=== PATIENT | male | born 1965 | race Caucasian/White ===

== ENCOUNTER 2017-06-01 21:42 | Emergency (ER) | payer BC ==
--- NOTE | 2017-06-01 22:03 | UC ---
Hand/Wrist HPI - HPI Summary HPI Summary: Pt presents to the with left 5th finger pain. Pt states [employer] was playing basketball. Pt states his hand was struck by the knee of another player. Pt with pain to finger only- no wrist or elbow pain. No other injuries. No analgesia taken. No weakness. No paresthesia. No ice applied. Pt is RHD. No previous injury Pt's medications reviewed this visit - History Of Current Complaint Chief Complaint: UCUpperExtremity Stated Complaint: LEFT HAND INJURY Time Seen by Provider: 06/01/17 22:01 Hx Obtained From: Patient Mechanism Of Injury: struck by knee to left hand Onset/Duration: Sudden Onset Severity Initially: Moderate Severity Currently: Moderate Pain Intensity: 6 Pain Scale Used: 0-10 Numeric Character Of Pain: Sharp, Throbbing Aggravating Factor(s): Movement, Flexion Alleviating Factor(s): Nothing Associated Signs And Symptoms: Positive: Swelling - Allergies/Home Medications Allergies/Adverse Reactions: Allergies Allergy/AdvReac Type Severity Reaction Status Date / Time No Known Allergies Allergy Verified 06/01/17 21:54 PMH/Surg Hx/FS Hx/Imm Hx Previously Healthy: Yes - Surgical History Surgical History: None - Family History Known Family History: Positive: None - Social History Occupation: Employed Full-time Lives: With Family Alcohol Use: Occasionally Substance Use Type: None Smoking Status (MU): Never Smoked Tobacco - Immunization History Most Recent Tetanus Shot: within last 2-3 years Review of Systems Motor: Other - pain with movement Neurovascular: Negative Musculoskeletal: Edema - left 5th All Other Systems Reviewed And Are Negative: Yes Physical Exam Triage Information Reviewed: Yes Appearance: Well-Appearing, No Pain Distress, Well-Nourished Vital Signs: Initial Vital Signs Temp 98.5 F 06/01/17 21:51 Pulse 71 06/01/17 21:51 Resp 14 06/01/17 21:51 BP 146/97 06/01/17 21:51 Pulse Ox 97 06/01/17 21:51 Eyes: Positive: Conjunctiva Clear ENT: Positive: Hearing grossly normal Neck: Positive: Supple, Nontender, No Lymphadenopathy Respiratory: Positive: No respiratory distress, No accessory muscle use Cardiovascular: Positive: Other: - 2+ radial, 2+ ulnar CBT < 2 sec Musculoskeletal: Positive: Other: - + flex/ext elbow + pronate/supinate + flex/ ext left wrist with discomfort left 5th finger + flex/ext mcp, dip, pip with discomfort along 5th finger and medial dorsum hand Neurological Exam: Normal Neurological: Positive: Alert Psychological Exam: Normal Skin: Positive: Other - + edema along 5th finger no ecchymosis Procedures - Splinting Location: left hand Hand-Made Type: padded, held with per Splint: volar Pre-Proc Neuro Vasc Exam: normal Post-Proc Neuro Vasc Exam: normal, unchanged from pre-exam - permission to splint from pt. place in volar/ulnar gutter at 90 MCP joint Pt tolerated well Diagnostics - Radiology No standard instances Radiology Interpretation Completed By: ED Physician - oblique fx, 5th MC Hand/Wrist Course/Dx - Course Course Of Treatment: Pt with pain in left lateral hand s/p being struck during basketball game. Pt with 5th MCP fx. Pt placed in ulnar gutter/volar splint. tolerated well. CSM intact. referral to ortho. motrin/apap. sling. ice. elevate. Pt declined work note. Of note, during examination pt with vasovagal reaction - became lightheaded. Pt laid down - no syncope. pt rapidly, fully recovered pt took po juice and crackers. pt ambulated department, VSS prior to d/c - Differential Dx/Diagnosis Provider Diagnoses: Metacarpal fracture left Discharge - Discharge Plan Condition: Stable Disposition: HOME Patient Education Materials: Hand Fracture (ED) Forms: *Work Release Referrals: Huber Dugan MD [Medical Doctor] - Additional Instructions: - Wear splint until you are seen in follow-up by the orthopedic provider - Contact the orthopedic provider tomorrow to schedule a follow-up appointment - Okay to alternate ibuprofen (Advil, Motrin) and Tylenol every 3 hours for pain - take with food - Okay to apply ice (20 minutes at a time) 2-3 times a day - elevate your hand to help with swelling and pain -contact the orthopedic provider or return with questions or concerns
--- NOTE | 2017-06-02 07:31 | RAD ---
INDICATION: Left hand injury. TECHNIQUE: 4 views of the left hand were obtained. FINDINGS: There is an oblique fracture of the mid diaphysis of the fifth metacarpal. The fracture fragments are slightly overriding. The distal fragment is displaced one cortical diameter anterior and demonstrates slight anterior angulation relative the proximal fragment. IMPRESSION: OBLIQUE SLIGHTLY DISPLACED AND SLIGHTLY ANGULATED FRACTURE OF THE FIFTH METACARPAL.
== END 2017-06-01 22:37 | disposition home or self-care (01) ==
LOC: UCCORT 21:42
DX: S62.307A Unspecified fracture of fifth metacarpal bone, left hand, initial encounter for closed fracture (principal); W50.0XXA Accidental hit or strike by another person, initial encounter; Y93.67 Activity, basketball; Y92.310 Basketball court as the place of occurrence of the external cause
CPT/HCPCS: 26600; 99203; G0463

== ENCOUNTER 2018-12-04 10:50 | Emergency (ER) | payer BC ==
--- NOTE | 2018-12-04 11:32 | UC ---
Hand/Wrist HPI - HPI Summary HPI Summary: Left hand injured playing softball last night. Was tagging someone out at home plate and they slid into his hand. Has taken no mediation for pain at home. Placed his hand in an old splint he had fro ma pervious injury - History Of Current Complaint Chief Complaint: UCUpperExtremity Stated Complaint: LEFT HAND INJURY Hx Obtained From: Patient ?: No Onset/Duration: Sudden Onset, Lasting Hours Severity Initially: Moderate Severity Currently: Moderate Pain Intensity: 4 Character Of Pain: Dull, Aching, Stiffness Aggravating Factor(s): Movement Associated Signs And Symptoms: Positive: Swelling, Bruising - Allergies/Home Medications Allergies/Adverse Reactions: Allergies Allergy/AdvReac Type Severity Reaction Status Date / Time No Known Allergies Allergy Verified 12/04/18 11:11 PMH/Surg Hx/FS Hx/Imm Hx Previously Healthy: Yes - Surgical History Surgical History: None - Family History Known Family History: Negative: Cardiac Disease, Hypertension - Social History Alcohol Use: Occasionally Substance Use Type: None Smoking Status (MU): Never Smoked Tobacco - Immunization History Most Recent Tetanus Shot: within last 2-3 years Review of Systems All Other Systems Reviewed And Are Negative: Yes Skin: Positive: Bruising Musculoskeletal: Positive: Arthralgia, Decreased ROM, Edema, Myalgia Is Patient Immunocompromised?: No Physical Exam Triage Information Reviewed: Yes Appearance: Well-Appearing, Well-Nourished, Pain Distress Vital Signs: Initial Vital Signs Temp 98.4 F 12/04/18 11:03 Pulse 46 12/04/18 11:03 Resp 16 12/04/18 11:03 BP 146/87 12/04/18 11:03 Pulse Ox 98 12/04/18 11:03 Vital Signs Reviewed: Yes Eye Exam: Normal ENT Exam: Normal Dental Exam: Normal Neck exam: Normal Respiratory Exam: Normal Cardiovascular Exam: Normal Abdominal Exam: Normal Bowel Sounds: Positive: Present Musculoskeletal: Positive: Strength Limited @, ROM Limited @, Edema @ - over the 4th and 5th metacarpals Neurological Exam: Normal Psychological Exam: Normal Hand/Wrist Course/Dx - Course Course Of Treatment: hx obtained, exam performed ,meds reviewed, splinted and sent to ortho for follow up - Differential Dx/Diagnosis Differential Diagnosis/HQI/PQRI: Contusion, Dislocation, Fracture Provider Diagnosis: Fracture of fourth metacarpal bone of left hand Discharge - Sign-Out/Discharge Documenting (check all that apply): Patient Departure All imaging exams completed and their final reports reviewed: No Studies - Discharge Plan Condition: Stable Disposition: HOME Patient Education Materials: Hand Fracture (ED) Referrals: No Primary Care Phys,NOPCP [Primary Care Provider] - Srinivas Velázquez MD [Medical Doctor] - Additional Instructions: 1. use the splint continually 2. Ibuprofen and tylenol for pain and swelling 3. Follow up with orthopedics - Billing Disposition and Condition Condition: STABLE Disposition: Home
== END 2018-12-04 11:36 | disposition home or self-care (01) ==
LOC: UCCORT 10:50
DX: S62.325A Displaced fracture of shaft of fourth metacarpal bone, left hand, initial encounter for closed fracture (principal); X58.XXXA Exposure to other specified factors, initial encounter; Y93.64 Activity, baseball; Y92.9 Unspecified place or not applicable
CPT/HCPCS: 99211; G0463